=== PATIENT | female | born 1970 | race Caucasian/White ===

== ENCOUNTER 2024-09-03 15:35 | Observation (INO) ==
--- NOTE | 2024-09-03 15:59 | EKG ---
Test Reason : chest pain, tachycardia Blood Pressure : */* mmHG Vent. Rate : 123 BPM Atrial Rate : 123 BPM P-R Int : 148 ms QRS Dur : 86 ms QT Int : 346 ms P-R-T Axes : 44 4 10 degrees QTc Int : 495 ms Sinus tachycardia with premature atrial complexes and premature ventricular complexes or fusion compl exes Moderate voltage criteria for LVH, may be normal variant ( R in aVL , Sokolow-Fuller ) Nonspecific T wave abnormality Abnormal ECG No previous ECGs available Confirmed by Mike Dougherty MD ([id number]) on 09/04/2024 9:42:13 AM Referred By: Confirmed By: Mike Dougherty MD
[2024-09-03 16:13] LABS: INR 1.03 (0.8-1.3)
[2024-09-03 16:15] LABS: HEMATOCRIT 43.6 % (36.0-47.0); MEAN CORPUSCULAR HGB CONC 34.1 g/dL (33.0-35.0); MONOCYTES # (AUTO) 0.3 x10^3/uL (0.3-0.8)
[2024-09-03 16:17] LABS: BASOPHILS # (AUTO) 0.1 X10^3/uL (0.0-0.1); BASOPHILS % (AUTO) 0.9 % (0.2-1.0); HEMOGLOBIN 14.9 g/dL (12.0-16.0); LYMPHOCYTES # (AUTO) 0.6 X10^3/uL (1.3-2.9); MEAN CORPUSCULAR HEMOGLOBIN 31.5 pg (27.0-34.0); MEAN CORPUSCULAR VOLUME 92.3 fL (80.0-100.0); MEAN PLATELET VOLUME 8.5 fL (7.4-11.0); MONOCYTES % (AUTO) 2.2 % (0.0-13.0); NEUTROPHILS # (AUTO) 14.7 x10^3/uL (2.2-4.8); NEUTROPHILS % (AUTO) 92.9 % (42.0-75.0); PLATELET COUNT 374 X10^3/uL (150.0-450.0); RED BLOOD COUNT 4.73 X10^6/uL (3.5-5.4); RED CELL DISTRIBUTION WIDTH 13.8 % (11.6-16.5); WHITE BLOOD COUNT 15.8 X10^3/uL (3.6-10.0)
--- NOTE | 2024-09-03 16:21 | RAD ---
EXAM:CHEST, 1 VIEWHISTORY:CHEST PAIN ;COMPARISON:None available.FINDINGS:The trachea is midline. The cardiac silhouette is unremarkable . The lungs are clear without focal infiltrate or effusion. The bony thorax demonstrates Maher rods within the thoracic spine.IMPRESSION:No acute cardiopulmonary disease.THIS IS AN ELECTRONICALLY VERIFIED FINAL REPORT09/03/2024 4:18 PM - Electronically signed by Jovan Galo MD
[2024-09-03 16:22] LABS: ALANINE AMINOTRANSFERASE 42 Units/L (12-78); ALBUMIN 4.3 g/dL (3.4-5.0); ALKALINE PHOSPHATASE 107 Units/L (46-116); ASPARTATE AMINO TRANSFERASE 31 Units/L (15-37); BLOOD UREA NITROGEN 13 mg/dL (7-18); CALCIUM 8.9 mg/dL (8.5-10.1); CHLORIDE 102 mmol/L (98-107); COR NA(FOR HYPERGLY) 143 mmol/L (136-145); CREATININE 0.92 mg/dL (0.55-1.02); GLUCOSE 151 mg/dL (65-99); MAGNESIUM 1.8 mg/dL (2.0-2.9); POTASSIUM 3.6 mmol/L (3.5-5.1); SODIUM 142 mmol/L (136-145); TOTAL PROTEIN 8.3 g/dL (6.4-8.2); eGFR NON BLACK RACES > 60 (>60)
[2024-09-03] MEDS: ZOFRAN INJ 4 MG VIAL IVP ONE (16:37)
[2024-09-03] MEDS: ASPIRIN PO ONE (16:38)
[2024-09-03] MEDS: MORPHINE SULFATE INJ 2 MG INJ IVP ONE (16:38)
[2024-09-03 16:39] LABS: PLATELET MORPHOLOGY COMMENT NORMAL (NORMAL)
[2024-09-03] MEDS: NS 1,000 ML IV 1,000 ML IV ONE (17:18)
[2024-09-03] MEDS: MAGNESIUM SULFATE 1 GRAM/100 mL PREMIX 1 G/100 ML BAG IV ONE (17:18)
[2024-09-03] MEDS: CARDIZEM INJ 50 MG VIAL IVP ONE (17:19)
--- NOTE | 2024-09-03 18:59 | DR.NAUSEAF ---
HPI Time Seen Time Seen by Provider: 09/03/24 15:54 Primary Care Physician Primary Care Physician: Catrachito Jo HPI Comment HPI Comment: Influenza A patient with complaint of abdominal discomfort and feeling achy. She also feels like her heart is beating out of her chest. She does have a history of anxiety but states she is not feeling very anxious right now. Complaints Chief Complaint:: Pt states when she woke up this AM she "felt funny" in her chest "like something sitting on it and my pulse was beating out of my chest". She states she has also been vomitting since she woke up this morning. CP feels like "pressure", midsternal w/ slight left side, denies radiation to other site. Pt states she is having abdominal pain and states "my whole body is aching". Pt denies any cardiac history, has not taken any aspirin or pain medication today COVID-19 Coronavirus risk:travel/contact w/high risk person: No Has patient experienced Coronavirus symptoms: No Source History Provided: Patient Mode of Arrival Mode of Arrival: Ambulatory Timing Onset of Chief Complaint: 09/03/24 PMH PMH Past Medical History: Yes Past Medical History: Depression Past Surgical History: Yes Surgical History: Other Past Surgical History Comment: scoliosis surgery Family History History of Family Medical Conditions: Yes Family Medical History: Cancer, Coronary Artery Disease and Hypertension Social History Type of Tobacco Use: Vape Does any household member use tobacco: Yes Alcohol Use: Occasionally Do you use any recreational Drugs:: Yes (marijuana) Lives With: Family Lives Where: Home Travel Risk Coronavirus risk:travel/contact w/high risk person: No Has patient experienced Coronavirus symptoms: No Infectious screening In the last 2 months have you had wt loss of >10#?: NO Have you had fever, night sweats or hemotysis?: No Have you traveled outside the country in the last 6 months?: No Isolation: Standard ROS Review of Systems Constitutional: No Symptoms Reported Eyes: No Symptoms Reported ENTM: No Symptoms Reported Respiratoy: No Symptoms Reported Cardiovascular: See HPI and Palpitations Gastrointestinal/Abdominal: See HPI Genitourinary: No Symptoms Reported Neurological: No Symptoms Reported Musculoskeletal: No Symptoms Reported Integumentary: No Symptoms Reported Hematologic/Lymphatic: No Symptoms Reported Endocrine: No Symptoms Reported Psychiatric: No Symptoms Reported All Other Systems: Reviewed and Negative PE Vital Signs Vitals: Vital Signs Temperature 98.1 F Pulse Rate 93 Pulse Rate 98 Pulse Rate 99 Pulse Rate 104 Pulse Rate 101 Pulse Rate 101 Pulse Rate 101 Pulse Rate 103 Pulse Rate 101 Pulse Rate 99 Pulse Rate 102 Pulse Rate 99 Pulse Rate 99 Pulse Rate 112 Pulse Rate 107 Pulse Rate 108 Pulse Rate 136 Pulse Rate 150 Pulse Rate 128 Pulse Rate 119 Pulse Rate 117 Pulse Rate 112 Pulse Rate 124 Pulse Rate 114 Pulse Rate 123 Pulse Rate 104 Respiratory Rate 23 Respiratory Rate 21 Respiratory Rate 21 Respiratory Rate 25 Respiratory Rate 21 Respiratory Rate 19 Respiratory Rate 22 Respiratory Rate 22 Respiratory Rate 29 Respiratory Rate 22 Respiratory Rate 22 Respiratory Rate 20 Respiratory Rate 23 Respiratory Rate 25 Respiratory Rate 24 Respiratory Rate 24 Respiratory Rate 16 Respiratory Rate 19 Respiratory Rate 23 Respiratory Rate 25 Respiratory Rate 30 Respiratory Rate 18 Respiratory Rate 26 Respiratory Rate 27 Respiratory Rate 35 Respiratory Rate 19 Respiratory Rate 17 Respiratory Rate 24 Blood Pressure 111/61 Blood Pressure 108/59 Blood Pressure 112/59 Blood Pressure 101/56 Blood Pressure 105/58 Blood Pressure 115/64 Blood Pressure 106/60 Blood Pressure 108/59 Blood Pressure 102/60 Blood Pressure 106/60 Blood Pressure 107/64 Blood Pressure 117/61 Blood Pressure 110/65 Blood Pressure 100/62 Blood Pressure 114/68 Blood Pressure 107/73 Blood Pressure 96/62 Blood Pressure 91/52 Blood Pressure 121/58 Blood Pressure 155/84 Blood Pressure 167/98 Blood Pressure 183/100 Blood Pressure 167/104 Blood Pressure 174/104 O2 Sat by Pulse Oximetry 95 O2 Sat by Pulse Oximetry 95 O2 Sat by Pulse Oximetry 90 O2 Sat by Pulse Oximetry 94 O2 Sat by Pulse Oximetry 95 O2 Sat by Pulse Oximetry 94 O2 Sat by Pulse Oximetry 96 O2 Sat by Pulse Oximetry 95 O2 Sat by Pulse Oximetry 96 O2 Sat by Pulse Oximetry 95 O2 Sat by Pulse Oximetry 95 O2 Sat by Pulse Oximetry 97 O2 Sat by Pulse Oximetry 98 O2 Sat by Pulse Oximetry 95 O2 Sat by Pulse Oximetry 98 O2 Sat by Pulse Oximetry 96 O2 Sat by Pulse Oximetry 96 O2 Sat by Pulse Oximetry 97 O2 Sat by Pulse Oximetry 98 O2 Sat by Pulse Oximetry 96 O2 Sat by Pulse Oximetry 97 General Limitations: No Limitations General Appearance: Alert and In No Apparent Distress Head Head Exam: Normal Inspection Eyes Eye exam: Normal Appearance ENT ENT Exam: Normal Exam Neck Neck Exam: Normal Inspection Chest Chest Inspection: Normal Inspection Respiratory Respiratory Exam: Normal Lung Sounds Bilat Respiratory Exam: Bilateral: Clear to Auscultation Cardiovascular Cardiovascular Exam: Regular Rate and Normal Rhythm Abdominal Exam Abdominal Exam: Normal Inspection, Normal Bowel Sounds and Soft Rectal Rectal Exam: Deferred External Exam: Female: Deferred : Speculum Exam (Female): Deferred : Bimanual Exam (female): Deferred Extremities Extremities Exam: Normal Inspection Back Back Exam: Normal Inspection Neurologic Neurological Exam: Alert and Oriented X3 Psychiatric Psychiatric Exam: Normal Affect and Normal Mood Skin Skin Exam: Warm, Dry, Intact and Normal Color COURSE Consultation Called: 18:59 Consultation Comments: Discussed case with Dr. Gonzalez and he is agreeable with admission. ROR Labs Reviewed 09/03/24 15:57 09/03/24 15:57 Laboratory: WBC 15.8 X10^3/uL (3.6-10.0) H 09/03/24 15:57 RBC 4.73 X10^6/uL (3.5-5.4) 09/03/24 15:57 Hgb 14.9 g/dL (12.0-16.0) 09/03/24 15:57 Hct 43.6 % (36.0-47.0) 09/03/24 15:57 MCV 92.3 fL (80.0-100.0) 09/03/24 15:57 MCH 31.5 pg (27.0-34.0) 09/03/24 15:57 MCHC 34.1 g/dL (33.0-35.0) 09/03/24 15:57 RDW 13.8 % (11.6-16.5) 09/03/24 15:57 Plt Count 374 X10^3/uL (150.0-450.0) 09/03/24 15:57 Plt Count Comment Adequate (ADEQUATE) 09/03/24 15:57 MPV 8.5 fL (7.4-11.0) 09/03/24 15:57 Neut % (Auto) 92.9 % (42.0-75.0) H 09/03/24 15:57 Lymph % (Auto) 4.0 % (21.0-51.0) L 09/03/24 15:57 [place] % (Auto) 2.2 % (0.0-13.0) 09/03/24 15:57 Eos % (Auto) 0.0 % (0.9-2.9) L 09/03/24 15:57 Baso % (Auto) 0.9 % (0.2-1.0) 09/03/24 15:57 Neut # (Auto) 14.7 x10^3/uL (2.2-4.8) H 09/03/24 15:57 Lymph # (Auto) 0.6 X10^3/uL (1.3-2.9) L 09/03/24 15:57 [place] # (Auto) 0.3 x10^3/uL (0.3-0.8) 09/03/24 15:57 Eos # (Auto) 0.0 x10^3/uL (0.0-0.2) 09/03/24 15:57 Baso # (Auto) 0.1 X10^3/uL (0.0-0.1) 09/03/24 15:57 Absolute Nucleated RBC 0.0 /100WBC 09/03/24 15:57 Total Counted 100 09/03/24 15:57 Neutrophils % (Manual) 94 % (39-76) H 09/03/24 15:57 Lymphocytes % (Manual) 5 % (13-43) L 09/03/24 15:57 Monocytes % (Manual) 1 % (4-9) L 09/03/24 15:57 Plt Morphology Comment Normal (NORMAL) 09/03/24 15:57 RBC Morphology Normal (NORMAL) 09/03/24 15:57 PT 13.3 SECONDS (11.8-14.3) 09/03/24 15:57 INR Target Range - 09/03/24 15:57 INR 1.03 (0.8-1.3) 09/03/24 15:57 APTT 21.4 SECONDS (22.9-36.5) L 09/03/24 15:57 PTT Comment - 09/03/24 15:57 Sodium 142 mmol/L (136-145) 09/03/24 15:57 Corrected Sodium 143 mmol/L (136-145) 09/03/24 15:57 Potassium 3.6 mmol/L (3.5-5.1) 09/03/24 15:57 Chloride 102 mmol/L (98-107) 09/03/24 15:57 Carbon Dioxide 28.0 mmol/L (21-32) 09/03/24 15:57 BUN 13 mg/dL (7-18) 09/03/24 15:57 Creatinine 0.92 mg/dL (0.55-1.02) 09/03/24 15:57 Est GFR (MDRD) Af Amer > 60 (>60) 09/03/24 15:57 Est GFR (MDRD) Non-Af > 60 (>60) 09/03/24 15:57 Glucose 151 mg/dL (65-99) H 09/03/24 15:57 Calcium 8.9 mg/dL (8.5-10.1) 09/03/24 15:57 Corrected Calcium TNP 09/03/24 15:57 Magnesium 1.8 mg/dL (2.0-2.9) L 09/03/24 15:57 Total Bilirubin 0.40 mg/dL (0.2-1.0) 09/03/24 15:57 AST 31 Units/L (15-37) 09/03/24 15:57 ALT 42 Units/L (12-78) 09/03/24 15:57 Alkaline Phosphatase 107 Units/L (46-116) 09/03/24 15:57 Troponin I High Sens 9.5 ng/L (4.0-60.0) 09/03/24 15:57 Total Protein 8.3 g/dL (6.4-8.2) H 09/03/24 15:57 Albumin 4.3 g/dL (3.4-5.0) 09/03/24 15:57 Globulin 4.0 g/dL (2.5-4.5) 09/03/24 15:57 Albumin/Globulin Ratio 1.1 Ratio (1.1-2.1) 09/03/24 15:57 Opioid Opioid Risk Tool Age (Fredy box if 16-45): No History of Preadolescent Sexual Abuse: No Total: 0 Total Score Risk Category: Low Risk Copyright: Hari AMARO predicting aberrant behaviors Discharge Plan Diagnosis Discharge Problem: Narrow complex tachycardia, UTI (urinary tract infection) Discharge Plan Patient Disposition: 09 ADMITTED INPATIENT Condition: Stable Prescriptions: No Action paroxetine HCl 30 mg tablet 75 mg PO QDAY quetiapine 50 mg tablet 50 mg PO QDAY Health Concerns: Post Hospitalization: new medications and changes needed to prevent readmission or further decline. Pt educated and given instructions on all concerns. Plan of Treatment: Continue with present treatment and follow up plan. Pt is to keep follow up appointment as instructed and take medications as ordered. Orders to Discharge Patient Discharge Orders: Transfer (Routine); Ordered 09/03/24 Ordered By: Winston Bruce Follow ups/Referrals Follow ups/Referrals: CATRACHITO JO [REFERRING] - 3 days Instructions Stand Alone Forms: Find Help Web Site, Post Hospital Follow Up Care
--- NOTE | 2024-09-03 19:27 | EKG ---
Test Reason : Chest Pain Blood Pressure : */* mmHG Vent. Rate : 90 BPM Atrial Rate : 90 BPM P-R Int : 134 ms QRS Dur : 84 ms QT Int : 414 ms P-R-T Axes : 4 -3 -13 degrees QTc Int : 506 ms Normal sinus rhythm Minimal voltage criteria for LVH, may be normal variant(R in aVL) Nonspecific T wave abnormality Prolonged QT Abnormal ECG When compared with ECG [id number] 15:56,(Unconfirmed) fusion complexesare no longerpresent premature ventricular complexesare no longerpresent premature atrial complexesare no longerpresent Nonspecific T wave abnormality no longer evident inLateral leads Confirmed by Mike Dougherty MD ([id number]) on 09/04/2024 9:41:56 AM Referred By: Confirmed By: Mike Dougherty MD
[2024-09-03 19:35] LABS: BILIRUBIN,URINE NEGATIVE (NEGATIVE); BLOOD/HEMOGLOBIN,URINE 3+ (NEGATIVE); GLUCOSE, URINE NEGATIVE (NEGATIVE); KETONES,URINE 3+ (NEGATIVE); LEUKOCYTE ESTERASE ,URINE 1+ (NEGATIVE); NITRITES,URINE NEGATIVE (NEGATIVE); PROTEIN,URINE 3+ (NEGATIVE); UROBILINOGEN,URINE NORMAL (NORMAL)
[2024-09-03 19:45] LABS: APPEARANCE,URINE CLOUDY (CLEAR); COLOR,URINE YELLOW (YELLOW)
[2024-09-03 19:52] LABS: BACTERIA,URINE TRACE /HPF (NEGATIVE); GRANULAR CASTS,URINE RARE /LPF (NEGATIVE); SQUAMOUS EPITHELIAL CELL,UR RARE /HPF (NEGATIVE)
--- NOTE | 2024-09-03 19:55 | CT ---
EXAM:ABDOMEN/PELVIS W/O CONHISTORY:ABD PAIN,CP,VOMITTING;COMPARISON:April 07, 2021TECHNIQUE:Non-contrasted axial CT images of the abdomen and pelvis were obtained and reformatted into coronal and sagittal planes for further evaluation.Radiation dose: 194.16 mGy-cm total DLPFINDINGS:Lung bases are clear.Tiny sliding-type hiatal hernia.Stomach appears normal.Solid visceral organs of the upper abdomen are unremarkable.Gallbladder appears normal.No intra or extrahepatic biliary dilatation.Punctate nonobstructing bilateral nephroliths.No hydronephrosis, hydroureter or ureteral calculus.Unremarkable appearance of the urinary bladder.Normal appearance of the small and large bowel.Reproductive structures are unremarkable.No evidence of acute appendicitis.No pneumoperitoneum.No significant fluid collection.No adenopathy.No acute osseous abnormality.IMPRESSION:1. No acute intra-abdominal abnormality detected.2. Nonobstructing bilateral nephroliths.3. Tiny sliding-type hiatal hernia.THIS IS AN ELECTRONICALLY VERIFIED FINAL REPORT09/03/2024 7:52 PM - Electronically signed by Amari Vasquez MD
[2024-09-03 21:49] VITALS: BMI 26.9
[2024-09-03] MEDS: MACROBID CAP 100 MG EXT REL PO SCH (22:41)
[2024-09-03] MEDS: LOPRESSOR TAB 25 MG PO SCH (22:41)
[2024-09-04] MEDS ORDERED: ZOFRAN INJ 4 MG VIAL ONE (04:46)
[2024-09-04] MEDS: ZOFRAN INJ 4 MG VIAL IVP PRN (04:50)
[2024-09-04 04:55] LABS: BASOPHILS % (AUTO) 0.4 % (0.2-1.0); EOSINOPHILS % (AUTO) 0.2 % (0.9-2.9); HEMATOCRIT 37.4 % (36.0-47.0); HEMOGLOBIN 12.9 g/dL (12.0-16.0); LYMPHOCYTES # (AUTO) 1.8 X10^3/uL (1.3-2.9); LYMPHOCYTES % (AUTO) 18.2 % (21.0-51.0); MEAN CORPUSCULAR HEMOGLOBIN 31.6 pg (27.0-34.0); MEAN CORPUSCULAR HGB CONC 34.4 g/dL (33.0-35.0); MEAN PLATELET VOLUME 8.8 fL (7.4-11.0); MONOCYTES % (AUTO) 10.2 % (0.0-13.0); NEUTROPHILS # (AUTO) 7.1 x10^3/uL (2.2-4.8); PLATELET COUNT 311 X10^3/uL (150.0-450.0); RED BLOOD COUNT 4.07 X10^6/uL (3.5-5.4); RED CELL DISTRIBUTION WIDTH 13.8 % (11.6-16.5)
[2024-09-04 05:06] LABS: ALANINE AMINOTRANSFERASE 31 Units/L (12-78); ALBUMIN 3.3 g/dL (3.4-5.0); ALKALINE PHOSPHATASE 84 Units/L (46-116); ASPARTATE AMINO TRANSFERASE 14 Units/L (15-37); BLOOD UREA NITROGEN 18 mg/dL (7-18); CALCIUM 8.3 mg/dL (8.5-10.1); CARBON DIOXIDE 27.2 mmol/L (21-32); CHLORIDE 104 mmol/L (98-107); CHOL/HDL RATIO 5.3 (0.0-5.0); CHOLESTEROL 227 mg/dL (0-200); COR CA(FOR HYPOALB) 8.9 mg/dL (8.5-10.1); COR NA(FOR HYPERGLY) 141 mmol/L (136-145); CREATININE 0.83 mg/dL (0.55-1.02); GLUCOSE 121 mg/dL (65-99); HDL CHOLESTEROL 43 mg/dL (40-60); POTASSIUM 3.2 mmol/L (3.5-5.1); SODIUM 140 mmol/L (136-145); TOTAL PROTEIN 6.5 g/dL (6.4-8.2); TRIGLYCERIDES 339 mg/dL (0-150); eGFR NON BLACK RACES > 60 (>60)
[2024-09-04] MEDS ORDERED: CONSULT PHARMACY - POTASSIUM & MAGNESIUM XX SCH (06:00)
[2024-09-04 07:39] VITALS: TEMP 98.1
[2024-09-04] MEDS: K-DUR TAB 20 MEQ PO SCH (08:54)
[2024-09-04 11:03] VITALS: BP 146/88; PULSE 60; RESP 17; O2SAT 88
--- NOTE | 2024-09-05 09:53 | DR.SSS ---
SHORT STAY SUMMARY Admission Date Date of Admission: 09/03/24 Discharge Date Discharge Date: 09/04/24 Admission Diagnoses Admission Diagnoses: acute cystitis narrow complex tachycardia Discharge Diagnoses Discharge Diagnoses: acute cystitis narrow complex tachycardia Chief Complaint Chief Complaint: palpitations History of Present Illness History of Present Illness: Patient is a 53-year-old female presenting with palpitations that occurred acutely day before. She reports she is having an uneasiness in her chest. On exam this morning she feels a lot better and feels like things are back to normal. Denies any palpitations or chest discomfort. Labs/imaging: WBC 10, hemoglobin 12.9, platelets 311, sodium 140, potassium 3.2, creatinine 0.83, glucose 121, lactic acid 1.1, magnesium 1.82.1. Troponin negative x 2. UA consistent with infection, urine culture pending, chest x-ray and CT abdomen pelvis was obtained that revealed no acute cardiopulmonary or intra-abdominal findings. Patient was admitted for narrow complex tachycardia and acute cystitis. She was started on Macrobid. She was also started on metoprolol tartrate 12.5 twice daily. Treatment has significantly improved symptoms and symptoms are now resolved. Patient was discharged in stable condition. Will prescribe metoprolol to tartrate 12.5 mg twice daily and Macrobid to continue at home. She will need to follow-up with her PCP in 3 to 5 days. Past Medical History Past Medical History: Depression Past Surgical History Surgical History: Ortho Surgery Allergies Allergies Allergy/AdvReac Type Severity Reaction Status Date / Time No Known Allergies Allergy Verified 09/03/24 15:36 Medications Home Medications: No Known Allergies Allergy (Verified 09/03/24 15:36) CONTINUE taking the following medications paroxetine HCl 30 mg tablet 75 mg PO QDAY 09/03/24 [History] quetiapine 50 mg tablet 50 mg PO QDAY 09/03/24 [History] New Prescriptions metoprolol tartrate 25 mg tablet 12.5 mg PO BID 30 days #30 tabs 09/04/24 [Rx] nitrofurantoin monohydrate/macrocrystals 100 mg capsule (Macrobid) 100 mg PO BID 7 days #14 caps 09/04/24 [Rx] Family History Family Medical History: Cancer, Coronary Artery Disease and Hypertension Social History Does patient currently use any type of tobacco product: No Type of Tobacco Use: Marjuana Does any household member use tobacco: No Alcohol Use: None Drug Use: None Review of Systems Constitutional: No Symptoms Reported Eyes: No Symptoms Reported ENT: No Symptoms Reported Respiratory: No Symptoms Reported Cardiovascular: Palpitations Gastrointestinal: No Symptoms Reported Genitourinary: No Symptoms Reported Musculoskeletal: No Symptoms Reported Skin: No Symptoms Reported Neurological: No Symptoms Reported Physical Exam Vital Signs: Last Vital Signs Temp 98.1 F 09/04/24 07:38 Pulse 74 09/04/24 10:00 Resp 25 H 09/04/24 10:00 BP 126/84 09/04/24 10:00 Pulse Ox 96 09/04/24 10:00 O2 Del Method Nasal Cannula 09/04/24 07:50 O2 Flow Rate 1 09/04/24 07:50 FiO2 24 09/04/24 07:50 Oriented: Normal Eyes: Normal Respiratory: Clear Throughout Cardiovascular: Normal : Normal Auscultation: Bowel Sounds: Normal Palpation: Normal Tenderness: Normal Skin: Normal Musculoskeletal: Normal Psychiatric: Normal Speech Pattern: Clear Labs Labs: Laboratory Last Values WBC 10.0 X10^3/uL (3.6-10.0) 09/04/24 04:04 RBC 4.07 X10^6/uL (3.5-5.4) 09/04/24 04:04 Hgb 12.9 g/dL (12.0-16.0) D 09/04/24 04:04 Hct 37.4 % (36.0-47.0) 09/04/24 04:04 MCV 92.0 fL (80.0-100.0) 09/04/24 04:04 MCH 31.6 pg (27.0-34.0) 09/04/24 04:04 MCHC 34.4 g/dL (33.0-35.0) 09/04/24 04:04 RDW 13.8 % (11.6-16.5) 09/04/24 04:04 Plt Count 311 X10^3/uL (150.0-450.0) 09/04/24 04:04 Plt Count Comment Adequate (ADEQUATE) 09/03/24 15:57 MPV 8.8 fL (7.4-11.0) 09/04/24 04:04 Neut % (Auto) 71.0 % (42.0-75.0) 09/04/24 04:04 Lymph % (Auto) 18.2 % (21.0-51.0) L 09/04/24 04:04 Rich % (Auto) 10.2 % (0.0-13.0) 09/04/24 04:04 Eos % (Auto) 0.2 % (0.9-2.9) L 09/04/24 04:04 Baso % (Auto) 0.4 % (0.2-1.0) 09/04/24 04:04 Neut # (Auto) 7.1 x10^3/uL (2.2-4.8) H 09/04/24 04:04 Lymph # (Auto) 1.8 X10^3/uL (1.3-2.9) 09/04/24 04:04 Rich # (Auto) 1.0 x10^3/uL (0.3-0.8) H 09/04/24 04:04 Eos # (Auto) 0.0 x10^3/uL (0.0-0.2) 09/04/24 04:04 Baso # (Auto) 0.0 X10^3/uL (0.0-0.1) 09/04/24 04:04 Absolute Nucleated RBC 0.0 /100WBC 09/04/24 04:04 Total Counted 100 09/03/24 15:57 Neutrophils % (Manual) 94 % (39-76) H 09/03/24 15:57 Lymphocytes % (Manual) 5 % (13-43) L 09/03/24 15:57 Monocytes % (Manual) 1 % (4-9) L 09/03/24 15:57 Plt Morphology Comment Normal (NORMAL) 09/03/24 15:57 RBC Morphology Normal (NORMAL) 09/03/24 15:57 PT 13.3 SECONDS (11.8-14.3) 09/03/24 15:57 INR Target Range - 09/03/24 15:57 INR 1.03 (0.8-1.3) 09/03/24 15:57 APTT 21.4 SECONDS (22.9-36.5) L 09/03/24 15:57 PTT Comment - 09/03/24 15:57 Sodium 140 mmol/L (136-145) 09/04/24 04:04 Corrected Sodium 141 mmol/L (136-145) 09/04/24 04:04 Potassium 3.2 mmol/L (3.5-5.1) L 09/04/24 04:04 Chloride 104 mmol/L (98-107) 09/04/24 04:04 Carbon Dioxide 27.2 mmol/L (21-32) 09/04/24 04:04 BUN 18 mg/dL (7-18) 09/04/24 04:04 Creatinine 0.83 mg/dL (0.55-1.02) 09/04/24 04:04 Est GFR (MDRD) Af Amer > 60 (>60) 09/04/24 04:04 Est GFR (MDRD) Non-Af > 60 (>60) 09/04/24 04:04 Glucose 121 mg/dL (65-99) H 09/04/24 04:04 Lactic Acid 1.1 mmol/L (0.4-2.0) 09/03/24 19:20 Calcium 8.3 mg/dL (8.5-10.1) L 09/04/24 04:04 Corrected Calcium 8.9 mg/dL (8.5-10.1) 09/04/24 04:04 Magnesium 2.1 mg/dL (2.0-2.9) 09/04/24 04:04 Total Bilirubin 0.30 mg/dL (0.2-1.0) 09/04/24 04:04 AST 14 Units/L (15-37) L 09/04/24 04:04 ALT 31 Units/L (12-78) 09/04/24 04:04 Alkaline Phosphatase 84 Units/L (46-116) 09/04/24 04:04 Creatine Kinase 192 Units/L (26-192) 09/03/24 19:20 Troponin I High Sens 15.5 ng/L (4.0-60.0) 09/03/24 19:20 Total Protein 6.5 g/dL (6.4-8.2) 09/04/24 04:04 Albumin 3.3 g/dL (3.4-5.0) L 09/04/24 04:04 Globulin 3.2 g/dL (2.5-4.5) 09/04/24 04:04 Albumin/Globulin Ratio 1.0 Ratio (1.1-2.1) L 09/04/24 04:04 Triglycerides 339 mg/dL (0-150) H 09/04/24 04:04 Cholesterol 227 mg/dL (0-200) H 09/04/24 04:04 LDL Cholesterol, Calc 116 mg/dL (0-100) H 09/04/24 04:04 HDL Cholesterol 43 mg/dL (40-60) 09/04/24 04:04 Cholesterol/HDL Ratio 5.3 (0.0-5.0) H 09/04/24 04:04 Specimen Type Clean catch urine 09/03/24 19:15 Urine Color Yellow (YELLOW) 09/03/24 19:15 Urine Appearance Cloudy (CLEAR) 09/03/24 19:15 Urine pH 6.0 (5.0 - 8.0) 09/03/24 19:15 Ur Specific [place] 1.020 (1.000-1.030) 09/03/24 19:15 Urine Protein 3+ (NEGATIVE) 09/03/24 19:15 Urine Glucose (UA) Negative (NEGATIVE) 09/03/24 19:15 Urine Ketones 3+ (NEGATIVE) 09/03/24 19:15 Urine Blood 3+ (NEGATIVE) 09/03/24 19:15 Urine Nitrite Negative (NEGATIVE) 09/03/24 19:15 Urine Bilirubin Negative (NEGATIVE) 09/03/24 19:15 Urine Urobilinogen Normal (NORMAL) 09/03/24 19:15 Ur Leukocyte Esterase 1+ (NEGATIVE) 09/03/24 19:15 Urine RBC 5-10 /HPF (0-3) A 09/03/24 19:15 Urine WBC 10-20 /HPF (0-5) A 09/03/24 19:15 Ur Squamous Epith Cells Rare /HPF (NEGATIVE) 09/03/24 19:15 Amorphous Sediment 1+ /HPF (NEGATIVE) 09/03/24 19:15 Urine Bacteria Trace /HPF (NEGATIVE) 09/03/24 19:15 Granular Casts Rare /LPF (NEGATIVE) 09/03/24 19:15 Urine Mucus Rare /HPF (NEGATIVE) 09/03/24 19:15 Ur Culture Indicated? Yes/culture set up 09/03/24 19:15 Assessment/Plan (1) Narrow complex tachycardia: (2) UTI (urinary tract infection): Hospital Course Hospital Course: Patient is a 53-year-old female presenting with palpitations that occurred acutely day before. She reports she is having an uneasiness in her chest. On exam this morning she feels a lot better and feels like things are back to normal. Denies any palpitations or chest discomfort. Labs/imaging: WBC 10, he moglobin 12.9, platelets 311, sodium 140, potassium 3.2, creatinine 0.83, glucose 121, lactic acid 1.1, magnesium 1.82.1. Troponin negative x 2. UA consistent with infection, urine culture pending, chest x-ray and CT abdomen pelvis was obtained that revealed no acute cardiopulmonary or intra-abdominal findings. Patient was admitted for narrow complex tachycardia and acute cystitis. She was started on Macrobid. She was also started on metoprolol tartrate 12.5 twice daily. Treatment has significantly improved symptoms and symptoms are now resolved. Patient was discharged in stable condition. Will prescribe metoprolol to tartrate 12.5 mg twice daily and Macrobid to continue at home. She will need to follow-up with her PCP in 3 to 5 days. Discharge Medications Discharge Medications: Home Medication List paroxetine HCl 30 mg tablet 75 mg PO QDAY 09/03/24 [History] quetiapine 50 mg tablet 50 mg PO QDAY 09/03/24 [History] metoprolol tartrate 25 mg tablet 12.5 mg PO BID 30 days #30 tabs 09/04/24 [Rx] nitrofurantoin monohydrate/macrocrystals 100 mg capsule (Macrobid) 100 mg PO BID 7 days #14 caps 09/04/24 [Rx] Prescriptions: metoprolol tartrate Marky Gonzalez nitrofurantoin monohyd/m-cryst [Macrobid] Angely Gonzalezn Discharge Disposition Discharge Disposition: Home Discharge Plan Discharge Plan Patient Disposition: HOME, SELF-CARE Condition: Stable Health Concerns: Post Hospitalization: new medications and changes needed to prevent readmission or further decline. Pt educated and given instructions on all concerns. Care Plan Goals: Problem: Infection Goal: Temperature within normal limits. Resolved infection. Instructions: Follow provided instructions. Follow up with primary physician as directed. Contact primary care physician or report to the closest Emergency Room if condition worsens. Plan of Treatment: Continue with present treatment and follow up plan. Pt is to keep follow up appointment as instructed and take medications as ordered. Prescriptions: New metoprolol tartrate 25 mg tablet 12.5 mg PO BID 30 Days Qty: 30 0RF nitrofurantoin monohyd/m-cryst [Macrobid] 100 mg capsule 100 mg PO BID 7 Days Qty: 14 0RF Rx Instructions: must administer with a meal/food Continued paroxetine HCl 30 mg tablet 75 mg PO QDAY quetiapine 50 mg tablet 50 mg PO QDAY Orders to Discharge Patient Discharge Orders: Discharge (Routine); Ordered 09/04/24 Ordered By: Marky Gonzalez Follow ups/Referrals Follow ups/Referrals: CATRACHITO JO [REFERRING] - 09/10/24 3:00 pm Instructions Instructions: Urinary Tract Infection, Female, Sinus Tachycardia Stand Alone Forms: Find Help Web Site, Post Hospital Follow Up Care
== END 2024-09-04 11:45 | disposition home or self-care (01) ==
LOC: ICU 15:35 → ER 15:35 → ICU 20:25
PROVIDERS: ADMIT Family Medicine; ATTEND Family Medicine
DX: Z74.1 Need for assistance with personal care; R79.1 Abnormal coagulation profile; R94.31 Abnormal electrocardiogram [ECG] [EKG]; R26.81 Unsteadiness on feet; Z65.8 Other specified problems related to psychosocial circumstances; I47.19 Other supraventricular tachycardia; N39.0 Urinary tract infection, site not specified; E83.42 Hypomagnesemia; E87.6 Hypokalemia; R73.09 Other abnormal glucose; K44.9 Diaphragmatic hernia without obstruction or gangrene